=== PATIENT | male | born 1950 | race Caucasian/White ===

== ENCOUNTER → 2016-12-06 | Outpatient (CLI) | payer BC | END | disposition home or self-care (01) | LOC: LAB 07:22 | PROVIDERS: ATTEND Family Medicine | DX: R94.5 Abnormal results of liver function studies (principal); Z79.899 Other long term (current) drug therapy; Z12.5 Encounter for screening for malignant neoplasm of prostate ==

== ENCOUNTER → 2017-12-21 | Outpatient (CLI) | payer BC | LOC: GMAL 10:55 | PROVIDERS: ATTEND Family Medicine | DX: Z00.01 Encounter for general adult medical examination with abnormal findings (principal) ==

== ENCOUNTER 2018-12-09 10:20 | Emergency (ER) | payer BC, OTHER ==
[2018-12-09] MEDS ORDERED: NEOMYCIN-BACITRACIN-POLYMYXIN 0.9 GM UD TOP ONE (11:00)
[2018-12-09] MEDS ORDERED: DOXYCYCLINE HYCLATE CAP 100 MG CAP PO ONE (11:05)
--- NOTE | 2018-12-09 11:10 | ED.PDOC ---
History of Present Illness - General Chief Complaint: Bite: Animal/Insect/Human Stated Complaint: Left hand - cat bite Time Seen by Provider: 12/09/18 11:05 Source: patient Exam Limitations: no limitations - History of Present Illness Initial Comments: PT PRESENTS WITH CAT BITE TO THE LEFT HAND AFTER ATTEMPTING TO HELP A NEIGHBOR WHO HAD FALLEN. PT REPORTS THAT VET CONFIRMS THAT CAT SHOTS WERE UP TO DATE. PT REPORTS UP TO DATE TETANUS. Timing/Duration: just prior to arrival Severity: mild Location: hands - LEFT Associated Symptoms: denies symptoms Allergies/Adverse Reactions: Allergies Bee Venom Allergy (Verified 12/09/18 10:37) Anaphylaxis Penicillins Allergy (Verified 12/09/18 10:37) Unknown Home Medications: Ambulatory Orders Doxycycline Hyclate 100 mg PO BID 7 Days #14 cap 12/09/18 Review of Systems - Review of Systems Constitutional: Denies: chills, fever Musculoskeletal: Denies: joint pain, joint swelling Skin: Denies: change in color, dryness, lesions Neurological: Denies: headache, numbness, paresthesia Past Medical History (General) - Patient Medical History Hx Stroke: No Hx Congestive Heart Failure: No Hx Diabetes: No Hx MRSA: No - Vaccination History Hx Tetanus, Diphtheria Vaccination: Yes - 2018 Hx Influenza Vaccination: Yes - 2018 Hx Pneumococcal Vaccination: No Immunizations Comment: Shingles vaccine 11/2018 - Social History Hx Tobacco Use: Yes - Smoked in his early 20's Hx Alcohol Use: Yes - Occasional Family Medical History - Family History Father Living Status: Cause of : Heart failure Physical Exam - Physical Exam General Appearance: Alert, No apparent distress, Well Developed, Well Groomed, Well Hydrated Eyes, Ears, Nose, Throat Exam: normal ENT inspection Neck: normal inspection Respiratory: no respiratory distress Back Exam: normal inspection Extremity: other - 2CM LACERATION TO THE DORSUM OF THE LEFT HAND BETWEEN THE FIRST AND SECOND DIGIT. SEVERAL OTHER PUNCTATE WOUNDS TO THE DORSUM OF THE HAND. NO ACTIVE BLEEDING NOTED, TENDON FUNCTION INTACT. Neurologic: alert, normal mood/affect, oriented x 3 Skin Exam: warm/dry, normal color Procedures - Laceration/Wound Repair Left Dorsal Hand Wound Length (cm): 2 Wound's Depth, Shape: superficial, irregular, contused tissue Wound Explored: no foreign body removed Irrigated w/ Saline (cc's): 1,000 Betadine Prep?: Yes Anesthesia: 1% Lidocaine Volume Anesthetic (cc's): 3 Wound Repaired With: sutures Suture Size/Type: 4:0, prolene Number of Sutures: 2 Layer Closure?: No Sterile Dressing Applied?: Yes Splint Applied?: No Sling Applied?: No Departure - Departure Clinical Impression: Cat bite of hand Time of Disposition: 11:08 Disposition: Discharge to Home or Self Care Condition: Good Departure Forms: ED Discharge - Pt. Copy, Patient Portal Self Enrollment Instructions: DI for Animal Bites Diet: resume usual diet Referrals: Vicetne Whittington III, MD [Primary Care Provider] - 1 Week Prescriptions: Doxycycline Hyclate 100 mg PO BID 7 Days #14 cap Home Medications: Ambulatory Orders Doxycycline Hyclate 100 mg PO BID 7 Days #14 cap 12/09/18 Additional Instructions: RETURN TO ED OR PCP IN 7-10 DAYS FOR SUTURE REMOVAL
[2018-12-09 11:24] VITALS: TEMP 99.1
[2018-12-09 11:47] VITALS: BP 152/109; O2SAT 97
== END 2018-12-09 11:22 | disposition home or self-care (01) ==
LOC: ER 10:20
DX: S61.452A Open bite of left hand, initial encounter (principal); W55.01XA Bitten by cat, initial encounter; Z87.891 Personal history of nicotine dependence; Z88.0 Allergy status to penicillin

== ENCOUNTER → 2019-11-29 | Outpatient (CLI) | payer BC | LOC: GMAL 11:38 | PROVIDERS: ATTEND Family Medicine | DX: Z00.01 Encounter for general adult medical examination with abnormal findings (principal) ==